=== PATIENT | male | born 1980 | race Hispanic/Latino ===

== ENCOUNTER 2019-11-29 08:39 | Outpatient (CLI) | payer OTHER ==
[2019-11-29 14:16] LABS: #Eosinphils 0.2 thou/uL (0.0-0.7); #Lymphocytes 2.6 thou/uL (1.20-3.40); #Monocytes 0.6 thou/uL (0.11-0.59); #Neutrophils 5.9 thou/uL (1.40-6.50); %Basophils 0.3 % (0.0-1.0); %Eosinophils 1.7 % (0.0-10.0); %Lymphocytes 28.3 % (21.0-51.0); %Monocytes 6.4 % (0.0-10.0); %Neutrophils 63.3 % (42.0-75.0); Hemoglobin 15.9 g/dL (14.0-18.0); Mean Corpuscular Hemoglobin 30.6 pg (27.0-31.0); Mean Corpuscular Volume 89.8 fL (78.0-98.0); Mean Platelet Volume 7.9 fL (7.4-10.4); Platelet Count 272 thou/uL (130-400); Red Blood Cell (RBC) Count 5.19 mill/uL (4.70-6.10); White Blood Cell (WBC) Count 9.3 thou/uL (4.8-10.8)
[2019-11-29 15:08] LABS: Anion Gap 17 mmol/L (10-20); BUN (Urea Nitrogen) 11 mg/dL (8.9-20.6); Calc. Creatinine Clearance 0 mL/min (70-130); Calcium 9.5 mg/dL (7.8-10.44); Carbon Dioxide 20 mmol/L (22-29); Chloride 102 mmol/L (98-107); Estimated GFR-MDRD Greater than 90; Glucose 107 mg/dL (70-105); Potassium 4.3 mmol/L (3.5-5.1); Sodium 135 mmol/L (136-145)
[2019-11-30 10:59] LABS: SARS-CoV-2 MS2 Positive; SARS-CoV-2 N Gene Negative; SARS-CoV-2 S Gene Negative; SARS-CoV-2 by NAA Not Detected (NotDetected); SARS-CoV-2 orf1ab Negative
== END 2019-11-29 08:40 | disposition home or self-care (01) ==
LOC: LABBT 08:39
PROVIDERS: ATTEND Specialist
DX: Z01.812 Encounter for preprocedural laboratory examination (principal); Z20.828 Contact with and (suspected) exposure to other viral communicable diseases; N62 Hypertrophy of breast
CPT/HCPCS: 80048; 85025; 87635; U0003

== ENCOUNTER 2019-12-06 08:01 | Outpatient (CLI) | payer OTHER ==
[2019-12-07 11:54] LABS: SARS-CoV-2 MS2 Positive; SARS-CoV-2 N Gene Negative; SARS-CoV-2 S Gene Negative; SARS-CoV-2 by NAA Not Detected (NotDetected); SARS-CoV-2 orf1ab Negative
== END 2019-12-06 08:02 | disposition home or self-care (01) ==
LOC: LABBT 08:01
PROVIDERS: ATTEND Specialist
DX: N62 Hypertrophy of breast (principal); Z20.828 Contact with and (suspected) exposure to other viral communicable diseases
CPT/HCPCS: 87635; U0003

== ENCOUNTER 2019-12-11 07:51 | Day surgery (SDC) | payer OTHER ==
[2019-12-10 11:05] VITALS: BMI 33.9
[2019-12-11] MEDS ORDERED: Levofloxacin 500 mg/D5W 100 ml Premix Bag ONE (08:02)
[2019-12-11] MEDS ORDERED: Ketorolac Tromethamine 30 MG/ML VIAL ONE (08:03)
[2019-12-11] MEDS ORDERED: Acetaminophen 500 MG TAB ONE (08:03)
[2019-12-11] MEDS ORDERED: Bupivacaine/Epinephrine 0.25% 30 ML VIAL ONE (08:55)
[2019-12-11] MEDS ORDERED: Fentanyl 100 MCG/2 ML VIAL ONE (08:57)
[2019-12-11] MEDS ORDERED: Midazolam HCl 2 mg/2 ml Vial ONE (08:59)
[2019-12-11] MEDS ORDERED: Ondansetron PF 4 MG/2 ML Vial ONE (09:00)
[2019-12-11] MEDS ORDERED: Lidocaine 1% PF 5 ML VIAL ONE (09:00)
[2019-12-11] MEDS ORDERED: PROPOFOL 200 MG/20 ML VIAL ONE (09:00)
--- NOTE | 2019-12-12 09:36 | OP ---
DATE OF PROCEDURE: 12/11/2019 PREOPERATIVE DIAGNOSIS: Right breast gynecomastia. POSTOPERATIVE DIAGNOSIS: Right breast gynecomastia. PROCEDURE PERFORMED: Right mastectomy. ANESTHESIA: General endotracheal. INDICATIONS: The patient is a 39-year-old male. He has a history of prior left breast gynecomastia treated surgically. He presents at this time with obvious painful, visible, and palpable right breast gynecomastia. He was taken to the operating room at this time for mastectomy and treatment of this. DESCRIPTION OF PROCEDURE: Informed consent was obtained. The patient was taken to the operating room, where general anesthesia was obtained with the patient in supine position. Right breast was prepped with ChloraPrep and draped in sterile fashion. Local anesthetic was infiltrated using 0.25% Marcaine with epinephrine. Curvilinear infra-areolar incision was created and dissection was carried through skin and subcutaneous tissue. This was at approximately the inframammary crease. Dissection was carried down to the chest wall. The glandular tissue was then dissected off the underlying muscular fascia. The area of anticipated resection was mapped out cutaneously based upon the palpable glandular tissue. I then grasped the skin edges with Hollie clamps and carefully dissected the glandular tissue away from the adipose dermal tissue. At the level of the areola, the glandular tissue was transected. The dissection was carried out primarily with electrocautery. The entirety of the glandular tissue was resected intact and removed from within the mastectomy cavity. It was tagged with suture for orientation and submitted to Pathology. Meticulous hemostasis obtained within the wound. The area was palpated. There was no obvious residual glandular tissue. A quarter-inch Friant drain was placed and brought out inferiorly on either side of the incision where it was secured with a 3-0 nylon suture. The deep layer of the wound was closed with running suture of 3-0 Vicryl. Skin edges were approximated with a running suture of 3-0 nylon. Fluff gauze dressing and compression dressing were placed with 6 inch Ranulfo bandage. There were no complications. Blood loss was negligible. The patient tolerated the procedure well and was taken to recovery room in stable condition. Job ID: [id number]
== END 2019-12-11 12:17 | disposition home or self-care (01) ==
LOC: SDC 07:51
PROVIDERS: ATTEND Specialist
PROC: 0HTT0ZZ Resection of Right Breast, Open Approach (ICD-10-PCS; principal; 2019-12-11)
DX: N62 Hypertrophy of breast (principal); Z88.0 Allergy status to penicillin
CPT/HCPCS: 88305; J1885; J1956; J2250; J2405; J2704; J3010

== ENCOUNTER 2020-01-23 09:10 | Outpatient (CLI) | payer OTHER ==
--- NOTE | 2020-01-23 12:11 | RAD ---
PA AND LATERAL CHEST: HISTORY: Right-sided chest pain. FINDINGS: Heart size and mediastinum are within normal limits. The lungs are clear of infiltrates. No signifi cant bony findings. IMPRESSION: No active intrathoracic disease. POS: PATRICE
== END 2020-01-23 09:11 | disposition home or self-care (01) ==
LOC: BICRAD 09:10
PROVIDERS: ATTEND Specialist
DX: R07.9 Chest pain, unspecified (principal); N62 Hypertrophy of breast
CPT/HCPCS: 71046

== ENCOUNTER 2020-11-24 14:08 | Emergency (ER) | payer OTHER | END 2020-11-24 16:24 | disposition home or self-care (01) | LOC: ERS 14:08 | DX: H60.502 Unspecified acute noninfective otitis externa, left ear (principal); H66.92 Otitis media, unspecified, left ear | CPT/HCPCS: 99282 ==